=== PATIENT | female | born 1985 | race African-American/Black ===

== ENCOUNTER 2017-05-22 12:27 | Emergency (ER) | payer OTHER ==
[~2017-05-22] VITALS: Ht 160 cm; Wt 79.4 kg
[~2017-05-22 12:27] MED LIST: APAP500 PO; AUGMENTIN 875-1 EACH PO; BIRTH CONTROL; DERMOPLAST SPRA56 ML TOP; IBUPROFEN 600600 M1 PO; IBUPROFEN 800800 M1 PO; LANOLIN56 GM TOP; MACROBID 100 M100 M1 PO; NAPROXEN 500MG500 M1 PO; NOHOMEMEDICATIONS; NORCO 5-325 TA1 EACH PO; PENICILLIN VK500 M1 PO; PYRIDIUM200 MG PO; TUCKS1 EAC1 TOP; ULTRAM 50MG TAB50 MG PO; VALTREX 500 MG500 M1; [UNRECOGNIZED DRUG - OTHER] TOP
[2017-05-22] MEDS ORDERED: MUCINEX D TABL1 EAC1 PO (13:33)
[2017-05-22] MEDS ORDERED: FLONASE 0.05%50 MCG NASAL (13:33)
== END 2017-05-22 13:44 | disposition home or self-care (01) ==
LOC: ER 12:27
DX: J01.10 Acute frontal sinusitis, unspecified (principal); J01.00 Acute maxillary sinusitis, unspecified; J01.20 Acute ethmoidal sinusitis, unspecified; B34.9 Viral infection, unspecified; Z87.891 Personal history of nicotine dependence

== ENCOUNTER 2018-04-06 14:22 | Emergency (ER) | payer OTHER ==
[~2018-04-06] VITALS: Ht 160 cm; Wt 81.7 kg
[~2018-04-06 14:22] MED LIST changes: +FLONASE 0.05%50 MCG NASAL; +MUCINEX D TABL1 EAC1 PO
[2018-04-06 14:55] LABS: URINE BILIRUBIN NEGATIVE (Negative); URINE BLOOD TRACE (Negative); URINE CLARITY CLEAR; URINE COLOR YELLOW; URINE GLUCOSE-RANDOM* NEGATIVE (Negative); URINE KETONES NEGATIVE (Negative); URINE LEUKOCYTES-REFLEX 1+ (Negative); URINE NITRITE-REFLEX POSITIVE (Negative); URINE PROTEIN (DIPSTICK) 1+ (Negative)
[2018-04-06 14:56] VITALS: BP 108/67
[2018-04-06] MEDS ORDERED: BIOTIN1 MG PO (15:00)
[2018-04-06 15:02] LABS: URINE WBC-REFLEX >25 Many /HPF (0-5)
[2018-04-06 15:04] LABS: BACTERIA-REFLEX >30 Many /HPF (None Seen); CASTS None Seen /LPF (None Seen); CRYSTALS None Seen /LPF (None Seen); SQUAMOUS None Seen /LPF (0-3); URINE RBC 0-2 Rare /HPF (0-2)
[2018-04-06] MEDS ORDERED: MACROBID 100 M100 M1 PO (15:35)
== END 2018-04-06 16:00 | disposition home or self-care (01) ==
LOC: ER 14:22
PROVIDERS: Physician Assistant
DX: N39.0 Urinary tract infection, site not specified (principal)